=== PATIENT | female | born 1965 | race Caucasian/White ===

== ENCOUNTER 2017-11-02 06:32 | Day surgery (SDC) | payer OTHER ==
[~2017-11-02 06:32] MED LIST: CARDIZEM30 MG PO; NEURONTIN300 MG PO; ULTRACET PO
== END 2017-11-02 11:25 | disposition home or self-care (01) ==
LOC: AMB-ENDOS 06:32
DX: K63.89 Other specified diseases of intestine (principal); K57.30 Diverticulosis of large intestine without perforation or abscess without bleeding; Z86.010 Personal history of colon polyps